=== PATIENT | female | born 1940 | race Caucasian/White ===

== ENCOUNTER → 2019-09-16 15:31 | Outpatient (CLI) | payer MEDICARE, SELFPAY ==
--- NOTE | ~2019-09-16 | XR_ITS ---
EXAMINATION: XR lumbar spine 2-3V DATE: 09/16/2019 15:55 INDICATION: Low back pain TECHNIQUE: Anteroposterior and lateral views of the lumbar spine, and cone-down lateral view of the l umbosacral junction were obtained. COMPARISON: 01/04/2015 FINDINGS: There are 6 mm of stable anterolisthesis of L4 on L5 and 10 mm of stable anterolisthesis of L5 on S1. There is unchanged moderate loss of intervertebral disc space height throughout the lumbar spine. Lumbar dextroscoliosis is noted. The vertebral body heights are normal. Severe facet osteoart hritis is again seen. No fracture is identified. Calcified atherosclerosis is noted. IMPRESSION: 1. Severe lumbar spondylosis without acute findings or significant interval change. Reviewed, dictated and finalized at location A. [employer] IMPRESSION: 1. Severe lumbar spondylosis without acute findings or significant interval charu nge.
== END ==
PROVIDERS: PCP Family Medicine; Visit Provider Physician Assistant
DX: M47.896 Other spondylosis, lumbar region (principal)
CPT/HCPCS: 72100

== ENCOUNTER 2019-09-22 15:55 | Emergency (ER) | payer MEDICARE, SELFPAY ==
--- NOTE | ~2019-09-22 | XR_ITS ---
XR chest 2V 09/22/2019 17:22 Indication: Fast heart rate. Hypertension. Procedure: 2 view chest Comparison: 11/02/2013 Findings: Status post median sternotomy for CABG. Cardiomegaly. No focal air space disease, pulmonary edema, pleural effusion or suspected pneumothorax. Calcified granuloma left midlung. There is a left shoulder arthroplasty. Impression: 1: No acute cardiopulmonary disease. 2: Cardiomegaly. Reviewed, dictated and finalized at location A. [employer] Impression: 1: No acute cardiopulmonary disease. 2: Cardiomegaly.
--- NOTE | 2019-09-22 15:55 | ECG_ITS ---
Measurements Intervals [place] Rate: 137 P: 29 IA: 154 QRS: 34 QRSD: 85 T: 1 QT: 350 QTc: 529 Interpretive Statements SINUS IR ECTOPIC ATRIAL TACHYCARDIA BORDERLINE ST-T WAVE ABNORMALITY- ANT/INF LEADS BASELINE ARTIFACT- I, II, III, AVR, V6 ABNORMAL ECG Electronically Signed On 09-22-2019 18:00:48 [employer] by Scott Tavera D.O.
[2019-09-22 15:56] VITALS: BP 153/76; PULSE 136; RESP 16; TEMP 36.1; O2SAT 97
--- NOTE | 2019-09-22 16:14 | ED.ARRPALP ---
HPI - Arrhythmia/Palpitations General Chief Complaint: Arrhythmia/Palpitations Stated Complaint: Fast Heart Rate after injection Time Seen by Provider: 09/22/19 16:11 Source: patient Mode of arrival: EMS Limitations: no limitations History of Present Illness HPI narrative: A 78 y/o female presents to the ED, via EMS, with c/o rapid heart beat. Pt states that today she was at her pain center for treatment of her arthritis when staff told her she had a rapid heart beat. Pt reports cough, but denies N/V/D, CP, SOB, fever, ABD pain, and dysuria. The cough started 2 weeks ago and she has recently been on an antibiotic. She was admitted to [facility] for 4 days for pneumonia and COPD. Pt is on 2.5L home O2 and takes Xopenex daily. complaint: rapid heart beat Onset (ago): hour(s) (Today) Duration: constant Associated symptoms: cough Related Data Allergies Allergy/AdvReac Type Severity Reaction Status Date / Time adhesive tape Allergy Intermediate BLISTERS Verified 07/09/18 09:52 Gkjxkak-Ele-Afh Reductase Allergy Intermediate Verified 11/18/13 09:46 Inhibitor Cephalosporins Allergy Mild Verified 10/24/12 13:55 clonidine Allergy Mild Verified 10/07/14 10:25 hydralazine Allergy Mild Verified 01/04/15 10:44 albuterol Allergy Unknown Verified 01/30/17 10:54 amoxicillin Allergy Unknown Verified 10/10/15 13:55 Beta-Blockers Allergy Unknown Dizziness Verified 10/03/17 13:08 (Beta-Adrenergic Bloc clarithromycin Allergy Unknown Verified 10/10/15 13:55 ezetimibe Allergy Unknown Verified 12/12/16 14:28 morphine Allergy Unknown Verified 10/10/15 13:55 telithromycin Allergy Unknown STOMACH Verified 07/09/18 09:52 UPSET oxytetracycline AdvReac Intermediate NAUSEA/VOMI Verified 07/09/18 09:52 TING CEFUROXIME SODIUM Allergy Intermediate HIVES Uncoded 07/09/18 09:52 OXYTETRACYCLINE HCL AdvReac Intermediate NAUSEA/VOMI Uncoded 07/09/18 09:52 TING Review of Systems Review of Systems: All systems reviewed & are unremarkable except as noted in HPI and below Constitutional: Constitutional: Denies fever(s) Cardiovascular: Cardiovascular: Denies chest pain and Reports rapid heart rate Respiratory: Respiratory: Reports cough and Denies dyspnea Gastrointestinal: Gastrointestinal: Denies abdominal pain, Denies diarrhea, Denies nausea and Denies vomiting Genitourinary: Genitourinary: Denies dysuria [facility] Past Medical History Medical History (Updated 09/22/19 @ 18:51 by Benjy Mckeon MD) Anemia Anxiety Atherosclerotic heart disease of [place] coronary artery without angina pectoris Bronchitis CAD (coronary artery disease) Chronic GERD Chronic obstructive pulmonary disease, unspecified DDD (degenerative disc disease) Depression DM neuro manif type II Emphysema of lung Heart attack History of blood transfusion HTN (hypertension) Hypertensive heart disease without heart failure Hyperthyroidism Low back pain Lumbar stenosis Mixed hyperlipidemia On home O2 Peripheral neuropathy Pneumonia Polyosteoarthritis, unspecified Type 2 diabetes mellitus without complications Umbilical hernia UTI (urinary tract infection) Viral hepatitis Surgical History Surgical History (Updated 09/22/19 @ 16:40 by Melvina Malloy) History of ankle surgery Bilateral History of appendectomy History of bladder surgery Bladder suspension History of carpal tunnel repair History of hysterectomy History of nasal septoplasty History of umbilical hernia repair Hx of CABG S/P foot surgery, right Family History Family History Mother Family history of malignant neoplasm of breast in first degree relative Social History Social History (Updated 09/22/19 @ 16:40 by Melvina Malloy) Smoking packs per day: 1 Smoking cigarettes per day: 20.0 Years smoked: 25 Smoking pack-years: 25.00 Smoking status: Former smoker Tobacco type: cigarettes Second hand tobacco smoke
[2019-09-22 16:52] VITALS: BP 136/76; PULSE 133; RESP 23; O2SAT 98
[2019-09-22] MEDS: LACTATED RINGERS 1,000 ML 500 ML IV CONT (16:52)
[2019-09-22 17:04] LABS: Basophils Absolute Auto 0.1 K/mm3 (0.0-0.1); Basophils Percent Auto 0.5 % (0.2-1.2); Eosinophils Absolute Auto 0.1 K/mm3 (0-0.3); Eosinophils Percent Auto 0.9 % (0-4.4); Hematocrit 36.5 % (37.0-47.0); Hemoglobin 11.7 g/dL (12.0-15.0); Immature Granulocyte Absolute 0.03 K/mm3 (0.00-0.031); Immature Granulocyte Percent A 0.3 % (0-0.5); Lymphocytes Absolute Auto 0.82 K/mm3 (0.9-3.2); Lymphocytes Percent Auto 8.2 % (18.3-44.2); Mean Corpuscular HGB Conc 32.1 g/dl (32-36); Mean Corpuscular Hemoglobin 30.2 pg (26-34); Mean Corpuscular Volume 94.1 fl (80-100); Mean Platelet Volume 10.3 fl (7.4-10.4); Monocytes Absolute Auto 0.3 K/mm3 (0.1-0.6); Monocytes Percent Auto 2.7 % (2.6-8.5); Neutrophils Absolute Auto 8.7 K/mm3 (1.3-6.7); Neutrophils Percent Auto 87.4 % (45.5-73.1); Platelet Count Result 332 k/mm3 (150-375); Red Blood Count 3.88 M/mm3 (4.2-5.4); Red Cell Distribution Width 14.2 % (11.5-14.5); White Blood Count 9.9 K/mm3 (4.5-10.0)
[2019-09-22 17:11] LABS: Blood Urea Nitrogen 28 mg/dL (7-17); Calcium 9.4 mg/dL (8.4-10.2); Carbon Dioxide 25 mmol/L (22-30); Chloride 98 mmol/L (98-107); Estimated CRCL calculation 37 ml/min; Estimated Glomerular Filt Rate 54; Glucose 97 mg/dL (65-105); Sodium 138 mmol/L (137-145)
[2019-09-22 17:23] LABS: Troponin I < 0.012 ng/mL (0.000-0.034)
[2019-09-22 17:55] VITALS: BP 138/79; PULSE 132; RESP 16; O2SAT 99
[2019-09-22 18:18] VITALS: BP 145/73; PULSE 140; RESP 14; O2SAT 96
[2019-09-22 18:29] LABS: Add Urine Microscopic? YES; Appearance Urine Clear (Clear); Bilirubin Urine Negative (Negative); Blood Urine Negative (Negative); Color Urine Yellow (Yellow); Glucose Urine UA Negative (Negative); Ketones Urine Trace mg/dL (Negative); Leukocyte Esterase Ur Negative LEU/UL (Negative); Mucus Urine Rare /lpf; Nitrate Urine Negative (Negative); Protein Urine Negative (Negative); RBC Urine 0-2 /hpf (0-2); Specific Grav Ur 1.017 (1.001-1.035); Squamous Epithelial Cell Urine Occasional /hpf (Few); Urobilinogen Urine Negative mg/dL (<2.0)
[2019-09-22 19:00] VITALS: BP 140/76; PULSE 132; RESP 28; O2SAT 98
--- NOTE | 2019-09-22 19:00 | PC.NURSE ---
REPORT GIVEN TO SOBEIDA MARTÍNEZ AT THIS TIME WHO HAS ASSUMED PT CARE.
[2019-09-22 20:14] VITALS: BP 130/79; PULSE 127; RESP 18; O2SAT 97
== END 2019-09-22 20:18 | disposition home or self-care (01) ==
PROVIDERS: Emergency Provider Emergency Medicine; PCP Family Medicine
DX: R00.0 Tachycardia, unspecified (principal); I11.0 Hypertensive heart disease with heart failure; Z87.891 Personal history of nicotine dependence; D64.9 Anemia, unspecified; F41.9 Anxiety disorder, unspecified; I25.10 Atherosclerotic heart disease of native coronary artery without angina pectoris; K21.9 Gastro-esophageal reflux disease without esophagitis; J44.9 Chronic obstructive pulmonary disease, unspecified; F32.9 Major depressive disorder, single episode, unspecified; I25.2 Old myocardial infarction; I50.9 Heart failure, unspecified; E05.90 Thyrotoxicosis, unspecified without thyrotoxic crisis or storm; E11.42 Type 2 diabetes mellitus with diabetic polyneuropathy
CPT/HCPCS: 36415; 71046; 80048; 81001; 84443; 84484; 85025; 93005; 96361; 96374; 99284; J7120